=== PATIENT | male | born 1960 | race Caucasian/White ===

== ENCOUNTER 2023-03-26 10:51 | Outpatient (REF) | payer BC, SELFPAY ==
--- NOTE | 2023-03-26 11:10 | SKI_PTH ---
PATIENT: Chris Vernon LOC: [facility] U#:[id number] AGE/SX: 62/M ROOM: RE03/26/[address]: Benigno Morales MD : [id number] BED: DIS: 03/26/2023 SPEC #: [id number] RECD: 03/26/23 13:01 STATUS: MILAN RELyudmila #: [id number] OSCAR: 03/26/23 11:[address]: Benigno Morales DEPT: Surgical Specimen RECD BY: Maragret Sen ENTERED: 03/26/23 13:02 SP TYPE: MARIA GUADALUPE ZARAGOZA DR: None Tissues: 1 - SKIN BIOPSY(SHAVE/PUNCH) Procedures: SKIN LEVEL 4 Comments: [id number]
== END 2023-03-26 10:52 | disposition home or self-care (01) ==
LOC: LBN 10:51
PROVIDERS: Visit Provider Surgery
DX: L72.9 Follicular cyst of the skin and subcutaneous tissue, unspecified
CPT/HCPCS: 88305

== ENCOUNTER 2023-12-04 07:38 | Emergency (ER) | payer BC, SELFPAY ==
[2023-12-04] VITALS (23 sets, daily range): BP systolic 118–216; BP diastolic 79–117; PULSE 52–78; RESP 10–22; TEMP 36.8; O2SAT 92–96
--- NOTE | 2023-12-04 07:45 | RT.EKG_ITS ---
APPROVED REPORT Exam: Resting ECG Reason for Exam: Chest tightness Patient Location: E HR:59 bpm ECG Measurements Heart Rate 59 AXIS NV 146 P 32 QRSd 96 QRS 58 QT 420 T 30 QTc 417 Conclusion Sinus bradycardia...rate< 60
--- NOTE | 2023-12-04 08:00 | DI.CT_ITS ---
Exam(s) CT HEAD WO EXAM: CT HEAD WO CLINICAL HISTORY: Dizziness, HTN,. TECHNIQUE: Imaging Protocol: Axial computed tomography images with coronal and sagittal reformatted images were created and reviewed COMPARISON: No exams were available for comparison FINDINGS: Ventricles and Extra axial spaces: Normal in size and morphology for the patient's age. Hemorrhage: None. Cerebral parenchyma: Normal. No mass effect. Midline shift: None. Brainstem/Cerebellum: Normal. Calvarium: Normal. Visualized Paranasal sinuses/Mastoids: Clear. Soft Tissues: Unremarkable. IMPRESSION: No acute intracranial process. RADIATION DOSE DELIVERED: Total DLP DATA REPOSITORY: All CT scans at this facility are submitted to the National Radiology Data Registry (NRDR) Dose Index Registry (DIR) with the [employer] (A[employer]). RADIATION OPTIMIZATION: All CT scans at this facility use at least one of these dose optimization te chniques: automated exposure control; mA and/or kV adjustment per patient size (includes targeted exa ms where dose is matched to clinical indication); or iterative reconstruction.
--- NOTE | 2023-12-04 08:06 | ED.GENADUL_ITS ---
Discharge Plan Disposition Patient Disposition: Home Condition: Stable Discharge Details Clinical Impression: High blood pressure, Dizziness Primary Care Provider: Unknown,Unknown ED Provider: Dorys Hanson Home Meds and New Rx's Prescriptions: New lisinopril 10 mg tablet 10 mg PO DAILY 30 Days Qty: 30 1RF Rx Instructions: Take 1 tablet by mouth daily Discharge Instructions Instructions: Controlling your blood pressure through lifestyle, Medicines for high blood pressure, Dizziness, Adult ED, High Blood Pressure ED, DASH diet Additional Instructions: At this time head CT is within normal limits no evidence of CVA. No evidence of heart attack troponin within normal limits. Kidney functions are also within normal limits. You do have high cholesterol triglycerides 188, total cholesterol 281, LDL 179 however this is not fasting at this time. HDL cholesterol 65 TSH 1.66 which is within normal limits No evidence for urinary tract infection. Please take the low-dose 10 mg lisinopril daily make sure to monitor your blood pressure at home. You may hold your blood pressure for any dizziness, lightheadedness, or blood pressure 90 systolic or less. Please follow-up with your PCP within the next week if possible. Return to the ER for any worsening headache, worsening visual disturbances, weakness on one side of your body, chest pain shortness of breath fever nausea vomiting or diarrhea. Thank you for allowing us to care for you today. Stand Alone Forms: Work Release Referrals: Primary Care Provider [Outside] (1 week for HTN eval) Discharge Data Discharge Date/Time-TO BE ENTERED AT DEPARTURE: 12/04/23 10:12 HPI General Mode of arrival: ambulatory . Date/Time Provider Initiated Documentation: 12/04/23 07:40 . Limitations to Documentation: no limitations . Information obtained by: patient, RN notes reviewed and old records reviewed . HPI Narrative: 63-year-old male presents to the ER with chief complaint of dizziness fogginess slight blurry Friday. He is not currently on any medications. He reports that his blood pressure always within normal range his last PCP visit. Upon arrival he does have a blood pressure of 216/117 and 180/90. He denies any chest pain denies any shortness of breath denies any nausea vomiting diarrhea. He reports that the dizziness comes on randomly. He also endorses to me that he was recently on vacation and did imbibe in beers frequently, and some THC Gummies. No alcohol for the last 3 days he is a non-smoker. No focal motor neurodeficits noted on exam. He denies any numbness tingling or weakness. No facial droop. Related Data Home Medications ?Medication ?Instructions ?Recorded ?Confirmed lisinopril 10 mg tablet 10 mg PO DAILY HTN 30 days #30 tabs 12/04/23 Previous Rx's ?Medication ?Instructions ?Recorded lisinopril 10 mg tablet 10 mg PO DAILY HTN 30 days #30 tabs 12/04/23 Allergies Allergy/AdvReac Type Severity Reaction Status Date / Time No Known Drug Intolerances Allergy Verified 03/26/23 10:31 General Stated Complaint: Dizzy/Sync HEATHER: 3 Review of Systems Constitutional Constitutional: Reports as per HPI and Denies headache(s) ENT Ears, Nose, Mouth, and Throat: Reports dizziness and Denies headache(s) Cardiovascular Cardiovascular: Denies chest pain, Denies pedal edema and Denies dyspnea Respiratory Respiratory: Denies dyspnea Neurologic Neurologic: Reports as per HPI, Denies abnormal speech, Denies confusion, Reports dizziness, Denies headache(s) and Reports other visual disturbances Psychiatric Psychiatric: Denies confusion Course Vital Signs Vital signs: Vital Signs Temperature 36.8 C 12/04/23 07:48 Pulse 68 12/04/23 07:48 Blood Pressure 216/117 H 12/04/23 07:48 Pulse Oximetry 96 12/04/23 07:48 Temperature 36.8 C 12/04/23 07:48 Temperature Source Temporal Artery Scan 12/04/23 07:48 Pulse 68 12/04/23 07:48 Blood Pressure 216/117 H 12/04/23 07:48 Blood Pressure Position Sitting 12/04/23 07:48 Pulse Oximetry 96 12/04/23 07:48 Oxygen Delivery Method Room Air 12/04/23 07:48 Oxygen Flow Rate 0 12/04/23 07:48 Pain Level 1 12/04/23 07:48 Comment doesn't feel right 12/04/23 07:48 Medical Decision Making 63-year-old male presents to the ER with chief complaint of dizziness fogginess slight blurry Friday. He is not currently on any medications. He reports that his blood pressure always within normal range his last PCP visit. Upon arrival he does have a blood pressure of 216/117 and 180/90. He denies any chest pain denies any shortness of breath denies any nausea vomiting diarrhea. He reports that the dizziness comes on randomly. He also endorses to me that he was recently on vacation and did imbibe in beers frequently, and some THC Gummies. No alcohol for the last 3 days he is a non-smoker. No focal motor neurodeficits noted on exam. He denies any numbness tingling or weakness. No facial droop. Cardiac workup ordered including serial troponins, TSH, urinalysis, head CT without contrast. Will consider lisinopril or amlodipine p.o. pending lab results. Will also add on a lipid panel. Patient reevaluation he reports that his headache is better, his blood pressure is much improved to 157/91 he is just recently received the lisinopril. Workup is largely unremarkable does have some high cholesterol which he is aware of triglycerides 188 total cholesterol 281 LDL is 179 TSH within normal limits, sodium 140 potassium 3.9 BUN 17 creatinine 1.0 GFR 85 total bilirubin slightly high at 1.25 . Urinalysis within normal limits no evidence of UTI TSH 166 which is within normal limits. CT head shows no acute intracranial process. Patient continues to not have any chest pain dizziness has since resolved. I did discuss home care with him we will prescribe him a low-dose lisinopril with follow-up with his PCP within a week he does see PCP at [facility]. He does have a primary home there. Will write him a work note and strict return instructions discussed he verbalized understanding. Serial troponin canceled as patient has not had any chest pain at this time, EKG sinus, no ectopy. Patient prescribed 10 mg lisinopril daily given a 30-day prescription with 1 refill. Patient remained alert and oriented x 4 neurologically intact hemodynamically stable throughout the remainder of the stay. Diagnosed with high blood pressure hyperlipidemia differential diagnosis includes but not limited to CVA, TIA, renal disease, stress anxiety, This text was generated using [employer] system, please disregard any oddities of phrase or misspellings. Lab Data Lab results reviewed: Yes I reviewed the patient's lab results. Labs: Laboratory Tests Range/Units 12/04/23 12/04/23 12/04/23 08:23 08:39 11:03 WBC (4.4-10.8) 10^3/uL 4.87 RBC (4.36-5.78) 10^6/uL 4.75 Hgb (13.5-17.5) g/dL 15.9 Hct (40.0-50.0) % 46.2 MCV (80-95) fL 97 H MCH (27.0-33.0) pg 33.5 H MCHC (32.0-36.0) % 34.4 RDW (11.8-14.1) % 11.8 Plt Count (130-400) 10^3/uL 191 MPV (8.0-11.0) fL 8.8 Immature Gran % % 0.2 Neutrophils % % 54.9 Lymphocytes % % 32.0 Monocytes % % 9.0 Eosinophils % % 2.7 Basophils % % 1.2 Nucleated RBC % (0.0-0.3) % 0.0 Absolute Neutrophils (1.2-6.7) 10^3/uL 2.67 Absolute Lymphocytes (1.2-3.4) 10^3/uL 1.56 Absolute Monocytes (0.1-0.8) 10^3/uL 0.44 Absolute Eosinophils (0.0-0.7) 10^3/uL 0.13 Absolute Basophils (0.0-0.2) 10^3/uL 0.06 PT (9.1-11.1) sec 10.6 INR (0.9-1.1) 1.1 Sodium (136-145) mmol/L 140 Potassium (3.5-5.1) mmol/L 3.9 Chloride (98-107) mmol/L 104 Carbon Dioxide (21.0-32.0) mmol/L 27.9 Anion Gap (3-11) mmol/L 8.1 BUN (7-18) mg/dL 17 Creatinine (0.70-1.30) mg/dL 1.0 Est GFR (CKD-EPI 2020) (mL/min/1.73m2) 85.63 Glucose (74-106) mg/dL 102 Calcium (8.5-10.1) mg/dL 9.2 Magnesium (1.8-2.4) mg/dL 2.1 Total Bilirubin (0.2-1.0) mg/dL 1.25 H AST (15-37) U/L 35 ALT (16-63) U/L 65 H Alkaline Phosphatase (46-116) U/L 71 Troponin I (< or =60) ng/L < 50 Cancelled Total Protein (6.4-8.2) g/dL 7.4 Albumin (3.4-5.0) g/dL 3.8 Triglycerides (<150) mg/dL 188 H Total Cholesterol (<200) mg/dL 281 H LDL Cholesterol, Calc (<100) mg/dL 179 H HDL Cholesterol (40-60) mg/dL 65 TSH (0.36-3.74) uIU/Ml 1.66 Urine Color (Yellow) Yellow Urine Clarity (Clear) Clear Urine pH (5-8) 5.5 Ur Specific [place] (1.005-1.025) 1.015 Urine Protein (Neg-Trace) mg/dL Negative Urine Ketones (Negative) mg/dL Negative Urine Blood (Negative) Negative Urine Nitrite (Negative) Negative Urine Bilirubin (Negative) Negative Urine Urobilinogen (Up to 0.2) mg/dL 0.2 Ur Leukocyte Esterase (Negative) Negative Urine Glucose (Negative) mg/dL Negative Quality:SDOH Health Related Social Needs: No Data to Display PFSH All Active Problems (Updated 12/04/23 @ 10:12 by Dorys Hanson NP) Dizziness (Acute) High blood pressure (Chronic) Social History Smoking risk assessment performed?: No Alcohol Intake: current Alcohol Intake frequency: a few times a month Alcohol type: beer Substance use type: does not use Housing: house Do you feel safe at home: Yes Do you feel safe in your relationship?: Yes
[2023-12-04 08:39] LABS: Abs Immature Grans 0.01 10^3/uL (0.0-0.06); Absolute Basophil Count 0.06 10^3/uL (0.0-0.2); Absolute Eosinophil Count 0.13 10^3/uL (0.0-0.7); Absolute Lymphocyte Count 1.56 10^3/uL (1.2-3.4); Absolute Monocyte Count 0.44 10^3/uL (0.1-0.8); Absolute Neutrophil Count 2.67 10^3/uL (1.2-6.7); Basophils % 1.2 %; Eosinophils % 2.7 %; HCT 46.2 % (40.0-50.0); HGB 15.9 g/dL (13.5-17.5); Immature Grans % 0.2 %; MCH 33.5 pg (27.0-33.0); MCHC 34.4 % (32.0-36.0); MCV 97 fL (80-95); MPV 8.8 fL (8.0-11.0); Neutrophils % 54.9 %; Platelet Count 191 10^3/uL (130-400); RBC 4.75 10^6/uL (4.36-5.78); RDW 11.8 % (11.8-14.1); RDW-SD 42.5 fL; WBC 4.87 10^3/uL (4.4-10.8)
[2023-12-04 08:53] LABS: INR 1.1 (0.9-1.1); Prothrombin Time 10.6 sec (9.1-11.1)
[2023-12-04 08:56] LABS: Calculated LDL 179 mg/dL (<100); Cholesterol 281 mg/dL (<200); HDL Cholesterol 65 mg/dL (40-60); Triglyceride 188 mg/dL (<150)
[2023-12-04 09:01] LABS: Bilirubin Negative (Negative); Blood Negative (Negative); Clarity Clear (Clear); Glucose Negative (Negative); Ketones Negative (Negative); Leukocyte Esterase Negative (Negative); Nitrite Negative (Negative); Specific Gravity 1.015 (1.005-1.025); Urobilinogen 0.2 mg/dL (Up to 0.2); pH 5.5 (5-8)
[2023-12-04] MEDS: Normal Saline 1,000 ML 250 ML IV (09:01)
[2023-12-04] MEDS: Lisinopril 10 MG TAB PO (09:42)
[2023-12-04 09:51] LABS: ALT 65 U/L (16-63); AST 35 U/L (15-37); Albumin 3.8 g/dL (3.4-5.0); Alkaline Phosphatase 71 U/L (46-116); Anion Gap 8.1 mmol/L (3-11); BUN 17 mg/dL (7-18); Bilirubin, Total 1.25 mg/dL (0.2-1.0); CO2 27.9 mmol/L (21.0-32.0); Calcium 9.2 mg/dL (8.5-10.1); Chloride 104 mmol/L (98-107); Estimated GFR 85.63 (mL/min/1.73m2); Glucose 102 mg/dL (74-106); Magnesium 2.1 mg/dL (1.8-2.4); Potassium 3.9 mmol/L (3.5-5.1); Sodium 140 mmol/L (136-145); TSH 1.66 uIU/Ml (0.36-3.74); Total Protein 7.4 g/dL (6.4-8.2); Troponin I < 50 ng/L (< or =60)
== END 2023-12-04 10:12 | disposition home or self-care (01) ==
PROVIDERS: Emergency Provider Registered Nurse Emergency
DX: R42 Dizziness and giddiness (principal); I10 Essential (primary) hypertension; R00.1 Bradycardia, unspecified; E78.5 Hyperlipidemia, unspecified
CPT/HCPCS: 36415; 80053; 80061; 93005; 99285; 70450; 81003; 83735; 84443; 84484; 85025; 85610; 93010; 99284

== ENCOUNTER 2024-01-08 10:23 | Outpatient (CLI) | payer BC, SELFPAY ==
[2024-01-08 09:15] LABS: ALT 49 U/L (16-63); AST 26 U/L (15-37); Albumin 3.8 g/dL (3.4-5.0); Alkaline Phosphatase 71 U/L (46-116); Anion Gap 5.6 mmol/L (3-11); BUN 17 mg/dL (7-18); Bilirubin, Total 1.48 mg/dL (0.2-1.0); CO2 30.4 mmol/L (21.0-32.0); Calcium 9.5 mg/dL (8.5-10.1); Calculated LDL 161 mg/dL (<100); Chloride 104 mmol/L (98-107); Cholesterol 248 mg/dL (<200); Estimated GFR 85.63 (mL/min/1.73m2); Glucose 108 mg/dL (74-106); HDL Cholesterol 61 mg/dL (40-60); Potassium 4.4 mmol/L (3.5-5.1); Sodium 140 mmol/L (136-145); Total Protein 7.5 g/dL (6.4-8.2); Triglyceride 132 mg/dL (<150)
== END 2024-01-08 10:24 | disposition home or self-care (01) ==
LOC: LBO 10:25
PROVIDERS: Visit Provider Nurse Practitioner Family
DX: E78.00 Pure hypercholesterolemia, unspecified (principal); I10 Essential (primary) hypertension
CPT/HCPCS: 36415; 80053; 80061

== ENCOUNTER 2024-03-15 15:25 | Outpatient (CLI) | payer BC, SELFPAY ==
--- NOTE | 2024-03-15 14:30 | DI.RAD_ITS ---
Exam(s) XR KNEE RT 3V AP,LAT,JULIANA XR KNEE LT 3V AP,LAT,JULIANA XR STANDING ALIGNMENT EXAM: XR STANDING ALIGNMENT CLINICAL HISTORY: knee pain. TECHNIQUE: 2D digital imaging was performed. Standing AP views were performed from the pelvis throu gh the ankles. COMPARISON: CR XR KNEE RT 3V AP,LAT,JULIANA from 03/15/2024 CR XR KNEE LT 3V AP,LAT,JULIANA from 03/15/2024 FINDINGS: BONES: No acute fracture is present. No bony destructive lesion is seen. Leg length discrepancy: No significant overall leg length discrepancy. JOINTS: Knees: Right knee: Screws are noted in the right distal femur and proximal tibia. There i s severe narrowing, with a xlzd-kn-gjil appearance, of the medial femoral tibial joint with prominent periarticular spurring. There is remodeling of the medial femoral condyle and medial tibial plateau as well as varus angulation. Degenerative changes are also present at the lateral femoral tibial boom int which shows mild narrowing and periarticular spurring. There is spurring at the tibial spines an d femoral intercondylar notch. There is severe narrowing of the lateral patellofemoral joint and curtis e lateral patellar subluxation. Prominent spurring at the articular aspect of the patella. Large de generative cyst in the central posterior proximal tibia. Left knee: Severe narrowing of the medial femoral tibial joint space with a qyaq-zs-lvqm appearance. Spurring at the tibial spines and femoral intercondylar notch. Mild varus angulation at the knee. Lateral femoral tibial joint and patellofemoral joint are suboptimally profiled. Prior ACL repair. Posterior joint space loose bodies. The ankle joints are unremarkable. The hip joints are unremarkable. SOFT TISSUE: Normal. 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 No significant leg length discrepancy. DATA REPOSITORY: RADIATION DOSE DELIVERED:
--- NOTE | 2024-03-15 15:14 | DI.RAD_ITS ---
Exam(s) XR KNEE RT 3V AP,LAT,JULIANA XR KNEE LT 3V AP,LAT,JULIANA XR STANDING ALIGNMENT EXAM: XR STANDING ALIGNMENT CLINICAL HISTORY: knee pain. TECHNIQUE: 2D digital imaging was performed. Standing AP views were performed from the pelvis throu gh the ankles. COMPARISON: CR XR KNEE RT 3V AP,LAT,JULIANA from 03/15/2024 CR XR KNEE LT 3V AP,LAT,JULIANA from 03/15/2024 FINDINGS: BONES: No acute fracture is present. No bony destructive lesion is seen. Leg length discrepancy: No significant overall leg length discrepancy. JOINTS: Knees: Right knee: Screws are noted in the right distal femur and proximal tibia. There i s severe narrowing, with a ynzh-lh-yoco appearance, of the medial femoral tibial joint with prominent periarticular spurring. There is remodeling of the medial femoral condyle and medial tibial plateau as well as varus angulation. Degenerative changes are also present at the lateral femoral tibial boom int which shows mild narrowing and periarticular spurring. There is spurring at the tibial spines an d femoral intercondylar notch. There is severe narrowing of the lateral patellofemoral joint and curtis e lateral patellar subluxation. Prominent spurring at the articular aspect of the patella. Large de generative cyst in the central posterior proximal tibia. Left knee: Severe narrowing of the medial femoral tibial joint space with a qukr-ik-jwdv appearance. Spurring at the tibial spines and femoral intercondylar notch. Mild varus angulation at the knee. Lateral femoral tibial joint and patellofemoral joint are suboptimally profiled. Prior ACL repair. Posterior joint space loose bodies. The ankle joints are unremarkable. The hip joints are unremarkable. SOFT TISSUE: Normal. 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 No significant leg length discrepancy. DATA REPOSITORY: RADIATION DOSE DELIVERED:
--- NOTE | 2024-03-15 15:14 | DI.RAD_ITS ---
Exam(s) XR KNEE RT 3V AP,LAT,JULIANA XR KNEE LT 3V AP,LAT,JULIANA XR STANDING ALIGNMENT EXAM: XR STANDING ALIGNMENT CLINICAL HISTORY: knee pain. TECHNIQUE: 2D digital imaging was performed. Standing AP views were performed from the pelvis throu gh the ankles. COMPARISON: CR XR KNEE RT 3V AP,LAT,JULIANA from 03/15/2024 CR XR KNEE LT 3V AP,LAT,JULIANA from 03/15/2024 FINDINGS: BONES: No acute fracture is present. No bony destructive lesion is seen. Leg length discrepancy: No significant overall leg length discrepancy. JOINTS: Knees: Right knee: Screws are noted in the right distal femur and proximal tibia. There i s severe narrowing, with a nnin-jy-ddmi appearance, of the medial femoral tibial joint with prominent periarticular spurring. There is remodeling of the medial femoral condyle and medial tibial plateau as well as varus angulation. Degenerative changes are also present at the lateral femoral tibial boom int which shows mild narrowing and periarticular spurring. There is spurring at the tibial spines an d femoral intercondylar notch. There is severe narrowing of the lateral patellofemoral joint and curtis e lateral patellar subluxation. Prominent spurring at the articular aspect of the patella. Large de generative cyst in the central posterior proximal tibia. Left knee: Severe narrowing of the medial femoral tibial joint space with a zuzp-gm-tipb appearance. Spurring at the tibial spines and femoral intercondylar notch. Mild varus angulation at the knee. Lateral femoral tibial joint and patellofemoral joint are suboptimally profiled. Prior ACL repair. Posterior joint space loose bodies. The ankle joints are unremarkable. The hip joints are unremarkable. SOFT TISSUE: Normal. 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 No significant leg length discrepancy. DATA REPOSITORY: RADIATION DOSE DELIVERED:
== END 2024-03-15 15:26 | disposition home or self-care (01) ==
LOC: DIORS 15:25
PROVIDERS: PCP Nurse Practitioner Family; Visit Provider Student in an Organized Health Care Education/Training Program
DX: M17.0 Bilateral primary osteoarthritis of knee
CPT/HCPCS: 73562; 77073

== ENCOUNTER 2024-07-19 03:47 | Outpatient (CLI) | payer OTHER, SELFPAY ==
[2024-07-19 09:22] LABS: HCT 46.6 % (40.0-50.0); HGB 15.8 g/dL (13.5-17.5); MCH 32.7 pg (27.0-33.0); MCHC 33.9 % (32.0-36.0); MCV 97 fL (80-95); MPV 8.4 fL (8.0-11.0); Platelet Count 225 10^3/uL (130-400); RBC 4.83 10^6/uL (4.36-5.78); RDW 11.6 % (11.8-14.1); RDW-SD 41.3 fL; WBC 6.45 10^3/uL (4.4-10.8)
[2024-07-19 09:53] LABS: Anion Gap 7.8 mmol/L (3-11); BUN 13 mg/dL (7-18); CO2 29.2 mmol/L (21.0-32.0); Calcium 9.3 mg/dL (8.5-10.1); Chloride 106 mmol/L (98-107); Glucose 103 mg/dL (74-106); Sodium 143 mmol/L (136-145)
== END 2024-07-19 03:48 | disposition home or self-care (01) ==
LOC: LBO 03:48
PROVIDERS: PCP Nurse Practitioner Family; Visit Provider Student in an Organized Health Care Education/Training Program
DX: M17.0 Bilateral primary osteoarthritis of knee (principal); Z01.818 Encounter for other preprocedural examination
CPT/HCPCS: 36415; 80048; 85027

== ENCOUNTER 2024-07-19 10:48 | Outpatient (CLI) | payer OTHER, SELFPAY ==
--- NOTE | 2024-07-19 08:13 | DI.RAD_ITS ---
Exam(s) XR STANDING ALIGNMENT EXAM: XR STANDING ALIGNMENT CLINICAL HISTORY: TKR Planning. TECHNIQUE: 2D digital imaging was performed. Four images were obtained. COMPARISON: CR XR KNEE LT 3V AP,LAT,JULIANA from 03/15/2024 CR XR KNEE RT 3V AP,LAT,JULIANA from 03/15/2024 CR XR STANDING ALIGNMENT from 03/15/2024 FINDINGS: BONES: The hips are well maintained. In the right knee, there is marked narrowing of the medial femo ral tibial joint space with xxag-sa-kjad. Osteophytes are seen both medially and laterally. There i s chondrocalcinosis seen in the lateral femoral tibial joint. There are findings suggestive of a tammy or cruciate ligament repair. In the left knee, there is again seen marked narrowing of the medial fe moral tibial joint with lill-tq-qtmi. Osteophytes are seen both medially and laterally. There are f indings of a prior cruciate ligament repair. Osseous densities are again seen posterior to the proxi mal tibia. The ankles are well maintained.There is no significant leg length discrepancy. SOFT TISSUE: Vascular calcifications are seen in the soft tissues. IMPRESSION: Marked osteoarthritis of the knees bilaterally. DATA REPOSITORY: RADIATION DOSE DELIVERED:
== END 2024-07-19 10:49 | disposition home or self-care (01) ==
LOC: DIORS 10:51
PROVIDERS: PCP Nurse Practitioner Family; Visit Provider Physician Assistant
DX: M17.0 Bilateral primary osteoarthritis of knee (principal)
CPT/HCPCS: 77073

== ENCOUNTER 2024-07-28 05:57 | Day surgery (SDC) | payer OTHER, SELFPAY ==
[2024-07-28] VITALS (22 sets, daily range): BP systolic 94–157; BP diastolic 39–81; PULSE 63–89; RESP 11–24; TEMP 36.5–36.7; O2SAT 91–98; BMI 32.1
[2024-07-28] MEDS: Celecoxib 200 MG CAP 400 MG PO ×2 (06:28→06:45)
[2024-07-28] MEDS: Acetaminophen 500 MG TAB 1000 MG PO (06:28)
[2024-07-28] MEDS: Gabapentin 300 MG CAP PO (06:29)
[2024-07-28] MEDS: Lactated Ringers 1,000 ML 80 ML IV (06:46)
--- NOTE | 2024-07-28 07:11 | W.ANESPRE ---
General Info Date of Service Date Performed: 07/28/24 Height: 5 ft 6 in Weight: 90.1 kg Body Mass Index (BMI): 32.1 Surgical Procedure: Operation Date: 07/28/24 07:50 Proposed Procedure Side Surgeon p Knee Total Arthroplasty Bilateral w/OrthAlign, Cementless CR Bilateral Adam Grissom MD Meds Allergies and Home Medications Allergies Allergy/AdvReac Type Severity Reaction Status Date / Time No Known Drug Allergies Allergy Mild Other (See Verified 07/26/24 13:44 Comment) No Known Drug Intolerances Allergy Other (See Verified 07/26/24 13:44 Comment) Home Medication ?Medication ?Instructions ?Recorded losartan 50 mg tablet 50 mg PO DAILY 07/19/24 omeprazole 20 mg capsule,delayed 20 mg PO DAILY 07/19/24 release Losartin 07/28/24 acetaminophen 500 mg tablet 1,000 mg (2 x 500 mg) PO TID #90 07/28/24 tabs aspirin 81 mg tablet,delayed 81 mg PO BID #60 tabs 07/28/24 release celecoxib 200 mg capsule 200 mg PO BID #60 caps 07/28/24 dexamethasone 4 mg tablet 4 mg PO DAILY #2 tabs 07/28/24 gabapentin 300 mg capsule 300 mg PO QHS #14 caps 07/28/24 oxycodone 5 mg tablet 5 mg PO Q4H PRN pain #20 tabs 07/28/24 Current Visit Medications: Current Medications Generic Name Dose Route Start Last Admin Trade Name Freq PRN Reason Stop Dose Admin Acetaminophen 1,000 mg 07/28/24 06:00 07/28/24 06:28 Acetaminophen 500 Mg Tab PO 07/28/24 23:59 1,000 mg PREOP SAMUEL Administration Celecoxib 400 mg 07/28/24 06:00 07/28/24 06:45 Celecoxib 200 Mg Cap PO 07/28/24 23:59 400 mg PREOP SAMUEL Administration Gabapentin 300 mg 07/28/24 06:00 07/28/24 06:29 Gabapentin 300 Mg Cap PO 07/28/24 23:59 300 mg PREOP SAMUEL Administration Ringer's Solution 1,000 mls @ 80 mls/hr 07/28/24 06:00 07/28/24 06:46 IV 07/28/24 23:59 80 mls/hr INFUSION SAMUEL Administration Cefazolin Sodium/Dextrose 2 gm in 50 mls @ 100 mls/hr 07/28/24 06:00 Ancef Duplex IVPB 07/28/24 23:59 PREOP SAMUEL Tranexamic Acid/Sodium Chloride 1,000 mg in 100 mls @ 600 mls/hr 07/28/24 06:00 IVPB 07/28/24 23:59 PREOP SAMUEL Tranexamic Acid/Sodium Chloride 1,000 mg in 100 mls @ 600 mls/hr 07/28/24 06:00 IVPB 07/28/24 23:59 DIRECTED SAMUEL IV Miscellaneous Supplies 1 each 07/28/24 06:00 Iv Access IV 07/28/24 23:59 DIRECTED SAMUEL Sodium Chloride 0 ml 07/28/24 06:00 Normal Saline Flush 10 Ml Syr IV 07/28/24 23:59 PRN PRN Sodium Chloride 0 ml 07/28/24 06:00 Normal Saline 10 Ml Vial IJ 07/28/24 23:59 DIRECTED PRN Sterile Water 0 ml 07/28/24 06:00 Water,Injection,Sterile 10 Ml Vial IJ 07/28/24 23:59 DIRECTED PRN PFSH Active Problems Active Problems: Problem Status Onset Code Arthritis of both knees Acute M17.0 High blood pressure Chronic I10 Medical History Medical History GERD (gastroesophageal reflux disease) Tobacco Smoking/Tobacco Use Status: Never Alcohol Alcohol Intake: current Alcohol intake frequency: holidays/special occasions only Alcohol type: beer Substance Use Substance use: Never Substance use type: does not use Vital Signs and Lab Results Vital Signs Most Recent Vital Signs in EMR: Most Recent Vital Signs Temp Pulse Resp BP Pulse Ox 36.7 C 71 18 154/78 H 96 07/28/24 06:05 07/28/24 06:05 07/28/24 06:05 07/28/24 06:05 07/28/24 06:05 Lab Results Blood Type / Crossmatch: No Data to Display Complete Blood Count: White Blood Count 6.45 10^3/uL (4.4-10.8) 07/19/24 09:12 Red Blood Count 4.83 10^6/uL (4.36-5.78) 07/19/24 09:12 Hemoglobin 15.8 g/dL (13.5-17.5) 07/19/24 09:12 Hematocrit 46.6 % (40.0-50.0) 07/19/24 09:12 Platelet Count 225 10^3/uL (130-400) 07/19/24 09:12 Complete Metabolic Panel: Sodium 143 mmol/L (136-145) 07/19/24 09:12 Potassium 4.0 mmol/L (3.5-5.1) 07/19/24 09:12 Chloride 106 mmol/L (98-107) 07/19/24 09:12 Carbon Dioxide 29.2 mmol/L (21.0-32.0) 07/19/24 09:12 BUN 13 mg/dL (7-18) 07/19/24 09:12 Creatinine 1.0 mg/dL (0.70-1.30) 07/19/24 09:12 Est GFR (CKD-EPI 2020) 85.10 (mL/min/1.73m2) 07/19/24 09:12 Calcium 9.3 mg/dL (8.5-10.1) 07/19/24 09:12 Glucose 103 mg/dL (74-106) 07/19/24 09:12 Liver Function Panel: No Data to Display Coagulation Panel: No Data to Display Cardiac Panel: No Data to Display Arterial Blood Gas: No Data to Display Venous Blood Gas: No Data to Display Pancreas Panel: No Data to Display Thyroid Panel: No Data to Display Infectious Disease: No Data to Display Blood Cultures: No Data to Display Toxicology Panel: No Data to Display Anesthesia Assessment and Plan Anesthesia History Personal History: No History of Anesthesia Complications Family History: No Family History of Anesthesia Complications Exercise Tolerance Exercise Tolerance: Metabolic Equivalents>4 Pertinent Negatives Pertinent Negatives: No Symptoms of GERD (took omeprazole this am), No Major Cardiovascular Symptoms or Complaints, No Major Pulmonary Symptoms or Complaints and No History of CVA/TIA Cardiac & Pulmonary Exam Cardiac Exam: Normal S1/S2 Heart Sounds Pulmonary Exam: Clear Bilateral Breath Sounds Implantable Cardiac Device Does patient have a Pacemaker or an ICD?: No Airway Exam Known Difficult Airway: No Mallampati Class: 2 Mouth Opening: Normal (> 3cm) Thyromental Distance: Greater than 3 cm Neck Range of Motion: Full ROM Neck Circumference: Normal Teeth Condition: Normal Dentition ASA Classification ASA Score: ASA 2 Emergency Case?: No NPO Status NPO Status: NPO Clears >2 hours, Solids >8 hours Anesthesia Plan Resuscitation Status: Full Code Anesthesia Technique: Spinal Anesthesia Airway Planned: Natural Airway Pain Management: Surgeon and patient request nerve block Monitors Used: Standard Monitors
--- NOTE | 2024-07-28 07:16 | W.PM.DSUDISC ---
Date of service: 07/28/24 Discharge Plan Disposition Patient Disposition: Home Condition: Good Discharge Details Reason For Visit: B/L TKR Attending Provider: Adam Grissom Primary Care Provider: Tamara Bruce Home Meds and New Rx's Prescriptions: New celecoxib 200 mg capsule 200 mg PO BID Qty: 60 0RF aspirin 81 mg tablet,delayed release (DR/EC) 81 mg PO BID Qty: 60 0RF acetaminophen 500 mg tablet 1,000 mg PO TID Qty: 90 3RF dexamethasone 4 mg tablet 4 mg PO DAILY Qty: 2 0RF gabapentin 300 mg capsule 300 mg PO QHS Qty: 14 0RF oxycodone 5 mg tablet 5 mg PO Q4H MDD 6 tabs PRN (Reason: pain) Qty: 20 0RF Continued losartan 50 mg tablet 50 mg PO DAILY omeprazole 20 mg capsule,delayed release(DR/EC) 20 mg PO DAILY Losartin Discontinued celecoxib [Celebrex] 200 mg capsule 200 mg PO BID Qty: 60 1RF Discharge Instructions Additional Instructions: Total Knee Discharge Instructions Activity: The most important activity is to walk and to work on gentle motion (both flexion and extension). You should try to take short walks a few times a day. It is important that when resting you work on keeping the knee straight. Avoid putting a pillow behind the knee as this will encourage flexion. Work on range of motion exercises as provided by Physical Therapy. - Start outpatient physical therapy within 2 weeks. - You should wear the GIOVANNI hose on both legs for 2 weeks. You may remove these at night. You may also use any compression sock in place of the GIOVANNI hose. - Utilize [employer] to review exercises, see videos on exercises and obtain basic information pertaining to your surgery and your recovery. Dressing: Remove the Bryant wrap by 2 days after your surgery and put on the GIOVANNI stocking given to you from the hospital. Keep the surgical dressing (underneath the BRYANT wrap) in place for at least one week. After the first week it may be removed and replaced with light gauze and tape or nothing. The wound and dressing may get wet after 3 days but avoid soaking the dressing or otherwise it will need to be changed. Many people prefer covering the dressing with cling wrap (saran wrap) to minimize it from getting soaked. If it gets wet, just pat dry. If it starts to peel off then it will need to be changed. Medications: - You should take Tylenol and anti-inflammatory Celebrex as your primary pain control medications. If the Celebrex is too expensive or not covered, please call the office for another alternative (Advil/Ibuprofen or Naproxen/Aleve) - You have been prescribed a stronger pain medication Oxycodone for breakthrough pain, take as needed as prescribed. - You have will continue your omeprasole to help reduce stomach acid and reflux. - You have been prescribed Gabapentin to take at night for restlessness and nerve pain. - You will be taking Aspirin 81mg twice a day for DVT prevention unless instructed otherwise. - You have also been prescribed Decadron to take to control post-operative nausea and pain. You will start this tomorrow. - If you have constipation you should take Colace or Miralax (both [id number]). It takes most people 3-4 days to have a bowel movement. Follow-up: 2 weeks If you have any acute concerns or questions, please do not hesitate to contact the office at [phone]. You may contact Dr. Grissom with any questions after hours through the hospital at [phone] or on his cell phone at [phone]. Referrals: Adam Grissom MD [ [facility] STAFF PHYSICIAN] - Equipment/Supplies: Walker Activity:: Activity as Tolerated Shower/Bathe:: 72 hours Diet:: As Tolerated Discharge Orders Discharge Orders: Discharge Order (Routine); Ordered 07/28/24 Ordered By: Holger Del Cid DS: Diagnosis Discharge Diagnosis (1) Arthritis of both knees: Status: Acute
[2024-07-28] MEDS: ceFAZolin 2 GM/50 ML BAG IVPB (07:43)
[2024-07-28] MEDS: TRANEXAMIC ACID/SOD. CHL. 1,000 MG/100 ML BAG 600 MG IVPB ×2 (07:52→09:26)
--- NOTE | 2024-07-28 08:32 | W.ANESNERVE ---
Nerve Block Single Injection Procedure Date and Time Date Performed: 07/28/24 Procedure Start: 07:22 Location Where Procedure Performed Procedure Location: Day Surgery Unit Reason Performed: Postoperative Analgesia Requesting Provider: Adam Grissom Timeout Performed Timeout Performed: Yes Monitoring Used ECG, Blood Pressure, SpO2 and See EMR for corresponding vital signs Sterility Sterility: Hand Hygiene, Surgical Cap, Surgical Mask, Sterile Gloves, Sterile Drape/Sheet and Chlorhexidine Sedation Given During Procedure Sedation Given (Indicate Dose Given): Versed IV Dose:: 2 mg Patient Mental Status Patient Mental Status: Sedate with meaningful communication Nerve Block 1st Nerve Block: Laterality: Bilateral Block Type: Adductor Canal Ultrasound Image Saved?: Yes Needle / Catheter Used: 100mm SonoPlex II (new needle and probe cover used for each side) Local Anesthetic Bolus (Indicate Dose Given): Lidocaine used for local infiltration of skin, Injected in 3-5ml increments after negative blood aspiration, Half of Total block solution given into each side, Bupivacaine 0.25% Dose:: 20 ml and Exparel Dose:: 10 ml Additives (Indicate Dose Given): None Ultrasound: Sterile probe cover and gel used Nerve Stimulator: Supplement to Ultrasound use and No twitch or parasthesia noted < 0.5 mA Paresthesia: None Procedure Tolerated: No Complications and Patient tolerated well Procedure Outcome: Successful Performed By: Cheryl Patel
--- NOTE | 2024-07-28 13:40 | W.ANESPOSTOP ---
Postoperative Evaluation Date, Time and Location Date Performed: 07/28/24 Time Performed: 13:12 Patient Location: Day Surgery Unit Vital Signs Most Recent Imported Vital Signs: Most Recent Vital Signs Temp Pulse Resp BP Pulse Ox 36.6 C 63 16 106/56 L 97 07/28/24 12:50 07/28/24 12:50 07/28/24 12:50 07/28/24 12:50 07/28/24 12:50 Pain Score Most Recent Pain Score: Most Recent Pain Score Pain Level 0 07/28/24 12:50 Assessment Mental Status: Awake (Alert & Oriented to Patient Baseline) Airway and Respiratory Function: Patent airway with normal (patient baseline) respiratory exam Cardiovascular Function: Hemodynamically Stable Hydration Status: Adequately Hydrated Nausea & Vomiting: No Nausea or Vomiting Pain: Pt. Denies Any Pain Peripheral Nerve Block: Regional nerve block not resolved at time of post operative discharge
[2024-07-28] MEDS: oxyCODONE 5 MG TAB PO (14:38)
--- NOTE | 2024-07-28 14:46 | PT.INIE ---
PT Notes Visit Reasons: B/L TKR Physical Therapy Day Surgery Initial Evaluation Date:07/28/2024 Referring Doctor: Dr. Grissom PT Orders: PT CONSULT: Status post Ortho surgery Precautions: WBAT BLE, teds x 2 weeks after removal of Bryant wrap's Patient Profile/Admitting Diagnosis: Patient is 64-year-old male presenting status post elective bilateral TKA under spinal anesthesia on 07/28/2024. Postop uncomplicated PMHX: [] Social History/Home Situation: Patient resides in 1 level home with one-step to enter with no rail. Patient independent ambulation without assistive device employed full-time, independent ADLs, meal prep. Patient drives and is active skier. Equipment Owned/DME: [employer] Subjective: Patient reports he feels surprisingly well. Objective: [] General Observation: Pt presents semireclined with cryocuff to B knees. Mental Status: Pt alert and oriented x 4, cooperative, motivated and agreeable to participate in evaluation Pain: Bilateral knees/quads right greater than left 2/10 ROM: [] Right Lower Extremity: Hip and ankle within normal limits, knee 0-105 degrees Left Lower Extremity: Hip and knee within normal limits, knee 0 to 108 degrees Strength: [] Right Lower Extremity: Patient demonstrates quad set without compensation, straight leg raise without lag in shortened range of motion, hamstring 2+/5 Left Lower Extremity: Patient demonstrates quad set without compensation, straight leg raise without lag in shortened range of motion, hamstring 2+/5 Sensation: Intact Bed Mobility/Transfers: [] Supine to sit independent Sit to stand standby assist Stand to sit standby assist Bed to chair standby assist with FWW Gait: Ambulates 150 feet with FWW initially contact-guard with verbal cues for FWW management and proper positioning for base of support as well as cues to hold/activate knee extension at/throughout mid stance bilateral. Patient progressed to standby assist without cues for quad activation at mid stance. Patient demonstrates impaired knee flexion through swing phase bilaterally. Stairs: 2 steps with bilateral rails contact-guard assist step to pattern, 1 step with FWW standby assist Balance: [] Static Sitting: Normal Dynamic Sitting: Good Static Standing: Good with 1 upper extremity support Dynamic Standing: Fair with 1 upper extremity support Special Tests: [] Mobility Limitations Standardized Measure [] [facility] 6 clicks Basic Mobility Inpatient Short Form: [] Raw Score: 19 CMS Score: 41.77% Informed Consent/Education: Patient instructed in purpose of PT consult. Treatment: 31979 packet containing TKA exercise protocol has been given to patient. Education and training on initial set of exercises that can be done at home have been completed with patient. [id number]: Functional mobility with FWW progressed from CGA to SBA to from chair, bed and toilet. Pt provided instruction for hand placement and technique. Instructed in stair performance with FWW on platform step to enter home without rails. Assessment: Patient presents with clinical signs and symptoms consistent with current/admitting diagnoses that have resulted to mobility limitations, gait instability, generalized weakness, and impairment of motor control as demonstrated by the following impairment level findings: 1. Decreased strength/motor control to bilateral knee major muscle groups 2. Impaired standing balance 3. Limitation of joint range of motion in Bilateral knee 4. Impaired functional activity tolerance. Impairments are contributing to the following functional limitations: 1. Inability to safely ambulate without assistive device 2. Increase completion time for mobility ADL performance 3. Increased fall risk 4. Decline in ability to perform stairs without assistance Patient is assessed as a moderate complexity based on the following: History: 64-year-old male with impairment level findings, functional limitations, and past medical history as indicated above Examination: Demonstrable impairment in strength, balance, and mobility level with underlying impairments and functional limitations as documented above Presentation: evolving Decision Making: moderate Goals: N/A. Plan of Care/Treatment Plan: N/A. PT evaluation and 1-2 treatment session only for functional mobility training using recommended AD and for HEP instruction. DISCHARGE RECOMMENDATIONS: Home with HEP and outpatient PT as scheduled TREATMENT CODE/TIME: 33778, 93405, [id number]/ [id number] Thank you for the opportunity to participate in the care of this patient. Camila Amezquita, PT [facility]
--- NOTE | 2024-07-29 07:38 | ROE_ITS ---
Operative Note Operative Note PRE-OP DIAGNOSIS: Bilateral Knee Osteoarthritis POST-OP DIAGNOSIS: same PROCEDURE: Bilateral Total Knee Replacement with Intraoperative Navigation SURGEON: Adam Grissom FISH BAIT PICKER: Dipesh Del Cid ANESTHESIA TYPE: Spinal Refer to Anesthesia Record PATHOLOGY: none sent TOURNIQUET TIME: 0 COMPLICATIONS: None Patient was transported to: PACU Patient's condition: stable Implants: RIGHT: 1. Depuy Attune Cementless Cruciate Retaining Femoral Component, Size 6 2. Depuy Attune Cementless Fixed Bearing Tibial Component, Size 6 3. Depuy Attune 6x8mm CR/FB Poly LEFT: 1. Depuy Attune Cementless Cruciate Retaining Femoral Component, Size 6 2. Depuy Attune Cementless Fixed Bearing Tibial Component, Size 6 3. Depuy Attune 6x10mm CR/FB Poly Indications: I have seen Cy in clinic for symptoms of bilateral post-traumatic knee arthritis, confirmed with radiographic findings. Cy has exhausted nonoperative methods and was having significant limitations in daily function and desired better function and less pain. I discussed the technical details of a knee replacement. I explained the risks of the procedure to include, but not limited to, bleeding, infection, pain, stiffness, fracture, damage to nerves and vessels, damage to muscles and tendons, loosening, need for repeat procedure, blood clot and cardiopulmonary demise. Despite these risks, Cy elected to proceed. Findings: There was significant signs of arthritis throughout the knee particularly posterior medially where there is notable deformity. Procedure Description: Cy was greeted in the preoperative holding area where the correct side was identified and marked. The consent was reviewed with the patient and signed. The history and physical was updated. All questions were answered. Preoperative mediacations were administered: Acetaminophen 1000mg, Celebrex 400mg, and Gabapentin 300mg. An adductor canal block was then administered by the anesthesia team in the D[facility]. Cy was taken back to the operating room. A spinal anesthestic was then administered. The patient was placed into the supine position on the operating room table. Posts were placed for positioning during the procedure. All bony prominences were well padded. Prophylactic antibiotics in the form of Cefazolin were administered. 1g of Tranxemic Acid was given intravenously within 30 minutes of incision. Both legs were then prepped with Chloraprep and draped in a standard fashion with impervious stockinette. RIGHT KNEE: Starting with the right knee, A second prep with Chloraprep was performed prior to application of Iodine impregnated skin protection. Then, a timeout to confirm correct identity, side and site, procedure, allergies, anesthesia, and medical concerns was performed. With the knee in some flexion, a midline incision was made overlying the knee. Full thickness skin flaps were raised once the extensor mechanism was encountered. These were raised medially and laterally. Any bleeding was controlled with electrocautery. Once the extensor mechanism was fully exposed, a medial parapatellar arthrotomy was performed in a flexed position. All bleeding from the arthrotomy and the geniculate arteries was coagulated. A medial subperiosteal peel was performed with electrocautery to the midcoronal plane. Due to the significant varus deformity the entire medial tibial plateau was exposed. The fat pad was removed while keeping the patellar tendon protected. The anterior distal femur synovium was removed for later visualization. The ACL and PCL were resected and the anterior horn of the lateral meniscus was transected. The knee was then flexed with the patella everted. Large osteophytes from the tibia were removed. Large osteophytes from the femur were removed. A single starting pin was then placed 1cm anterior to the PCL insertion and the notch in the direction of the femoral head. The OrthoAlign device was applied over the pin. It was oriented to be in line with the epicondylar axis and the trochlear groove. It was then pinned into place. The navigation computer was then turned on and calibrated. The distal femur cut was set at 1 degrees varus and 3.5 degrees flexion. The distal femur cutting guide then was positioned for a 9mm cut. The distal femur was cut with an oscillating saw while protecting the soft tissues. The tibia was then addressed. The OrthoAlign device was placed over the tibial tubercle and medial tibia and secured into position. Once again, OrthoAlign was calibrated and then set for a 2 degree varus cut and 6 degrees of posterior slope. With this locked into position, the cut thickness stylus was used to assess cut thickness. The medial side, most involved side, was set for a 3mm cut. This was then held in position and pinned into place with 2 additional pins and a cross pin for stability. The medial and lateral collateral ligaments were protected and the cut was performed. With this completed, it was assessed and noted to be of appropriate dimensions. The guide and OrthoAlign was removed. A spacer block was inserted and the knee was brought into extension to ensure enough space was present. . The Orthoalign gap balancing device was then placed in extension. This was used to ensure that the ligaments were properly balanced with up to 2 to 3 mm laxity laterally compared medially. The extension gap was measured as 20mm. The knee was then brought into 90 degrees of flexion and the ligament nurse staff industrial was once again placed. Under the same amount of force the flexion gap was measured. The Attune specific jig was placed and the flexion gap was made to match the extension gap. The femur was then sized as a size 6. The 4-in-1 cutting guide was the placed. An jennifer wing was used to confirm appropriate position of the anterior cut to avoid notching. This cutting guide was ensured to be flush on the cut surface and then pinned into place with headed pins. While protecting the soft tissues, quad tendon, and collateral ligaments, the anterior and posterior cuts were performed with a saw. The central two pins were removed and the posterior and anterior chamfers were cut next. The notch-cutting guide was placed. This was pinned to lateralize the femoral component as much as possible while keeping it flush on the cut surface. This was then pinned into position. A saw was used to make the notch cut. A rasp smoothed the cut surfaces. The medial and lateral menisci were removed. A trial femoral component was then inserted, impacted down to the cut surfaces, and the lug holes were drilled. A provisional trial tibial component was placed and the knee was brought through range of motion. There was noted to be excellent extension and flexion. There was no significant instability. The polyethylene was trialed until there was good flexion and extension with excellent stability to the medial and lateral collaterals. The patella was tracking without thumbs. A size 8mm polyethylene component provided the best range of motion and stability with less than 2mm gapping with medial and lateral stress and full extension without significant hyperextension. The tibial cut surface was fully exposed. The tibia was then sized as a 6. The tibia had been previously marked during trialing to correspond to the center of the tibial component to help with rotation. The trial was aligned to this dipesh, approximately rotated to the medial 1/3rd of the tibial tubercle. The trial was pinned into place. The tibia was prepared with a reamer and a keel punch and lug holes. The trial components were removed. The final components were opened on the back table. The periosteal and capsular tissues, especially posteriorly, around the knee were then systematically injected with a periarticular cocktail consisting of 246mg of Ropivacaine, 0.5mg of Epinephrine, 0.08mg of Clonidine, and 30mg of Ketorolac, diluted to 100cc. On the back table, with the implants opened, the cement was mixed. One batch of high viscosity cement was prepared with vacuum assistance. After the cement was ready a small amount was placed on the cut surface of the patella and the p atellar button was clamped into position and held. While the cement was hardening, the cementless knee components were placed. Starting with the tibial component, the tibia was subluxed anteriorly and the lug holes of the component were lined up. The tibia was then impacted with an impactor and mallet until the tibial component was in contact with the tibia. Then, the femoral component was inserted. The lug holes were aligned and the component was impacted into position. The final polyethylene component was inserted. The knee was irrigated with Surgiphor Betadine solution. This was allowed to sit in the knee for 3 minutes and then it was thoroughly irrigated out with saline. I then performed a complete synovectomy surrounding the patella and removed any prominence to the lateral facet with a rongeur. The patella was tracking with a no-thumbs technique. The capsule was then reapproximated with a No. 1 Vicryl at multiple locations. The capsule was finally closed with a No. 2 Stratafix, barbed suture. The second dosing of 1g TXA was started. Deep tissues were then reapproximated with 0 Vicryl and 2-0 Vicryl. The skin was closed with a running 3-0 Monocryl in a subcuticular fashion. This was reinforced with skin glue. LEFT KNEE: During attention to the left knee, the impervious stockinette was split and the knee was exposed. A second prep with Chloraprep was performed prior to application of Iodine impregnated skin protection. A timeout to confirm correct identity, side and site, procedure, allergies, anesthesia, and medical concerns was performed. With the knee in some flexion, a midline incision was made overlying the knee. Full thickness skin flaps were raised once the extensor mechanism was encountered. These were raised medially and laterally. Any bleeding was controlled with electrocautery. Once the extensor mechanism was fully exposed, a medial parapatellar arthrotomy was performed in a flexed position. All bleeding from the arthrotomy and the geniculate arteries was coagulated. A medial subperiosteal peel was performed with electrocautery to the midcoronal plane. Due to the significant varus deformity the entire medial tibial plateau was exposed. The fat pad was removed while keeping the patellar tendon protected. The anterior distal femur synovium was removed for later visualization. The ACL and PCL were resected and the anterior horn of the lateral meniscus was transected. The knee was then flexed with the patella everted. Large osteophytes from the tibia were removed. Large osteophytes from the femur were removed. A single starting pin was then placed 1cm anterior to the PCL insertion and the notch in the direction of the femoral head. The OrthoAlign device was applied over the pin. It was oriented to be in line with the epicondylar axis and the trochlear groove. It was then pinned into place. The navigation computer was then turned on and calibrated. The distal femur cut was set at 1 degrees varus and 3.5 degrees flexion. The distal femur cutting guide then was positioned for a 9mm cut. The distal femur was cut with an oscillating saw while protecting the soft tissues. The tibia was then addressed. The OrthoAlign device was placed over the tibial tubercle and medial tibia and secured into position. Once again, OrthoAlign was calibrated and then set for a 1.5 degree varus cut and 6 degrees of posterior slope. With this locked into position, the cut thickness stylus was used to assess cut thickness. The medial side, most involved side, was set for a 4mm cut. This was then held in position and pinned into place with 2 additional pins and a cross pin for stability. The medial and lateral collateral ligaments were protected and the cut was performed. With this completed, it was assessed and noted to be of appropriate dimensions. The guide and OrthoAlign was removed. A spacer block was inserted and the knee was brought into extension to ensure enough space was present. . The Orthoalign gap balancing device was then placed in extension. This was used to ensure that the ligaments were properly balanced with up to 2 to 3 mm laxity laterally compared medially. The extension gap was measured as 22mm. The knee was then brought into 90 degrees of flexion and the ligament nurse staff industrial was once again placed. Under the same amount of force the flexion gap was measured. The Attune specific jig was placed and the flexion gap was made to match the extension gap. The femur was then sized as a size 6. The 4-in-1 cutting guide was the placed. An jennifer wing was used to confirm appropriate position of the anterior cut to avoid notching. This cutting guide was ensured to be flush on the cut surface and then pinned into place with headed pins. While protecting the soft tissues, quad tendon, and collateral ligaments, the anterior and posterior cuts were performed with a saw. The central two pins were removed and the posterior and anterior chamfers were cut next. The notch-cutting guide was placed. This was pinned to lateralize the femoral component as much as possible while keeping it flush on the cut surface. This was then pinned into position. A saw was used to make the notch cut. A rasp smoothed the cut surfaces. The medial and lateral menisci were removed. A trial femoral component was then inserted, impacted down to the cut surfaces, and the lug holes were drilled. A provisional trial tibial component was placed and the knee was brought through range of motion. The polyethylene was trialed until there was good flexion and extension with excellent stability to the medial and lateral collaterals. The patella was tracking without thumbs. A size 10mm polyethylene component provided the best range of motion and stability with less than 2mm gapping with medial and lateral stress and full extension without significant hyperextension. The tibial cut surface was fully exposed. The tibia was then sized as a 6. The tibia had been previously marked during trialing to correspond to the center of the tibial component to help with rotation. The trial was aligned to this dipesh, approximately rotated to the medial 1/3rd of the tibial tubercle. The trial was pinned into place. The tibia was prepared with a reamer and a keel punch and lug holes. The trial components were removed. The final components were opened on the back table. The periosteal and capsular tissues, especially posteriorly, around the knee were then systematically injected with a periarticular cocktail consisting of 246mg of Ropivacaine, 0.5mg of Epinephrine, 0.08mg of Clonidine, and 30mg of Ketorolac, diluted to 100cc. On the back table, with the implants opened, the cement was mixed. One batch of high viscosity cement was prepared with vacuum assistance. After the cement was ready a small amount was placed on the cut surface of the patella and the patellar button was clamped into position and held. While the cement was hardening, the cementless knee components were placed. Starting with the tibial component, the tibia was subluxed anteriorly and the lug holes of the component were lined up. The tibia was then impacted with an impactor and mallet until the tibial component was in contact with the tibia. Then, the femoral component was inserted. The lug holes were aligned and the component was impacted into position. The final polyethylene component was inserted. The knee was irrigated with Surgiphor Betadine solution. This was allowed to sit in the knee for 3 minutes and then it was thoroughly irrigated out with saline. A complete synovectomy was performed around the patella. Any problems the lateral facet was resected. After the cement had finally cured, approximately 15min, the clamp was removed from the patella and the knee was taken through range of motion. The patella was tracking with a no-thumbs technique. The capsule was then reapproximated with a No. 1 Vicryl at multiple locations. The capsule was finally closed with a No. 2 Stratafix, barbed suture. Deep tissues were then reapproximated with 0 Vicryl and 2-0 Vicryl. The skin was closed with a running 3-0 Monocryl in a subcuticular fashion. This was reinforced with skin glue. A Mepilex silver dressing was applied to both knees along with a [id number] YANELIS wrap. A CryoCuff was applied. Chris was transferred to the hospital bed without difficulty an suffering no apparent complication. Chris has a good prognosis. Physical therapy will start today and without restrictions, weight-bearing as tolerated. Aspirin 81mg BID will be used for DVT prophylaxis. Date of Procedure: 07/28/24
== END 2024-07-28 15:50 | disposition home or self-care (01) ==
PROVIDERS: PCP Nurse Practitioner Family; Visit Provider Student in an Organized Health Care Education/Training Program
PROC: 0SRC0JZ Replacement of Right Knee Joint with Synthetic Substitute, Open Approach (ICD-10-PCS; CPT 27447; principal; 2024-07-28 07:30)
DX: M17.0 Bilateral primary osteoarthritis of knee (principal); G89.18 Other acute postprocedural pain
CPT/HCPCS: 27447; 20985; 64447; 97110; 97162; 97530; C1776; J0665; J0666; J0690; J1100; J1596; J2003; J2250; J2371; J2405; J2704

== ENCOUNTER 2024-08-09 12:18 | Outpatient (CLI) | payer OTHER, SELFPAY ==
--- NOTE | 2024-08-09 11:00 | DI.RAD_ITS ---
Exam(s) XR KNEE LT 1V XR KNEE RT 1V XR STANDING ALIGNMENT EXAM: XR STANDING ALIGNMENT and bilateral XR knee 1 V CLINICAL HISTORY: 1ST POST OP S/P BILAT TKAS. TECHNIQUE: 2D digital imaging was performed. Six images were obtained. COMPARISON: CR XR KNEE RT 3V AP,LAT,JULIANA from 03/15/2024 CR XR KNEE LT 3V AP,LAT,JULIANA from 03/15/2024 CR XR STANDING ALIGNMENT from 07/19/2024 FINDINGS: BONES: The hips are well maintained. Since the prior examination the patient has undergone bilateral total knee arthroplasties. There are screws from prior surgery in the right distal femur and the pr oximal right tibia. There is now a bend in the screw in the proximal tibia likely secondary to the p lacement of the tibial component of the prosthesis. There are findings of a prior ACL repair in the left knee. There is no evidence of hardware failure. The ankles are well maintained.There is no sig nificant leg length discrepancy. SOFT TISSUE: Mild vascular calcification is present. IMPRESSION: Unremarkable bilateral total knee arthroplasty. DATA REPOSITORY: RADIATION DOSE DELIVERED:
== END 2024-08-09 12:19 | disposition home or self-care (01) ==
LOC: DIORS 12:19
PROVIDERS: PCP Nurse Practitioner Family; Visit Provider Student in an Organized Health Care Education/Training Program
DX: Z96.653 Presence of artificial knee joint, bilateral (principal); Z47.1 Aftercare following joint replacement surgery
CPT/HCPCS: 73560; 77073